=== PATIENT | female | born 1940 | race Caucasian/White ===

== ENCOUNTER 2024-01-03 09:15 | Emergency (ER) | payer MEDICARE, OTHER, SELFPAY ==
[2024-01-03] VITALS (47 sets, daily range): BP systolic 124–219; BP diastolic 38–98; PULSE 42–104; RESP 8–21; O2SAT 83–99
--- NOTE | 2024-01-03 09:15 | RT.EKG_ITS ---
APPROVED REPORT Exam: Resting ECG Reason for Exam: palpitations Patient Location: E HR:75 bpm ECG Measurements Heart Rate 75 AXIS NE 169 P 62 QRSd 86 QRS 34 QT 394 T 59 QTc 439 Conclusion Sinus rhythm 75 Normal axis no stemi + PVC
[2024-01-03 09:37] LABS: Abs Immature Grans 0.05 10^3/uL (0.0-0.06); Absolute Basophil Count 0.07 10^3/uL (0.0-0.2); Absolute Eosinophil Count 0.29 10^3/uL (0.0-0.7); Absolute Lymphocyte Count 0.89 10^3/uL (1.2-3.4); Absolute Monocyte Count 0.85 10^3/uL (0.1-0.8); Absolute Neutrophil Count 8.35 10^3/uL (1.2-6.7); Basophils % 0.7 %; Eosinophils % 2.8 %; HCT 39.6 % (36.0-46.0); HGB 12.7 g/dL (11.2-15.7); Immature Grans % 0.5 %; Lymphocytes % 8.5 %; MCH 32.4 pg (27.0-33.0); MCHC 32.1 % (32.0-36.0); MCV 101 fL (80-95); MPV 10.6 fL (8.0-11.0); Monocytes % 8.1 %; Neutrophils % 79.4 %; Platelet Count 211 10^3/uL (130-400); RBC 3.92 10^6/uL (3.93-5.22); RDW-SD 51.6 fL
[2024-01-03] MEDS: nitroGLYcerin 0.4 MG TAB (09:40)
[2024-01-03] MEDS: Aspirin 325 MG TAB PO (09:41)
--- NOTE | 2024-01-03 09:49 | W.ED.GENAD ---
Discharge Plan Disposition Patient Disposition: Home Discharge Details Clinical Impression: Heart palpitations, Symptomatic PVCs Primary Care Provider: [facility] Provider: Lizandro Mclaughlin Home Meds and New Rx's Prescriptions: No Action famotidine 40 mg tablet 40 mg PO BID lisinopril 10 mg tablet 10 mg PO QHS lorazepam [Ativan] 0.5 mg tablet 0.5 mg PO QHS Rx Instructions: Can take an extra 1/2 tab PRN daily for anxiety hydrocodone-acetaminophen 10-325 mg tablet 1 tab PO Q6H Rx Instructions: Can take 1-2 tabs QID dicyclomine 10 mg capsule 10 mg PO QID PRN Patient Comments: TAKE ONE TO TWO CAPSULES BY MOUTH FOUR TIMES A DAY NEEDED FOR ABDOMINAL CRAMPING Rx Instructions: Take 1-2 cap PO QID PRN for abdominal pain nitroglycerin 400 mcg/spray spray,non-aerosol See Rx Instructions .ROUTE .COMPLEX Rx Instructions: PLACE ONE TABLET ON OR UNDER THE TONGUE EVERY 5 MINUTES FOR UP TO 3 DOSES NEEDED FOR CHEST PAIN. IF CHEST PAIN STILL PERSISTS CONTACT 911; PLACE ONE TABLET ON OR UNDER THE TONGUE EVERY 5 MINUTES FOR UP TO 3 DOSES NEEDED FOR CHEST PAIN. IF CHEST PAIN STILL PERSISTS CONTACT 911 diltiazem HCl [Cardizem] 30 mg tablet 30 mg PO DAILY Discharge Instructions Instructions: Arrhythmias (DC) Additional Instructions: Continue to monitor your blood pressure as it has been elevated in the emergency department today You are having intermittent PVCs but if you feel palpitations, take your dose of diltiazem. And please follow-up with your construction management assistant when you get home. Discharge Data Discharge Date/Time-TO BE ENTERED AT DEPARTURE: 01/03/24 13:07 HPI General Date/Time Provider Initiated Documentation: 01/03/24 09:17. Limitations to Documentation: no limitations. Information obtained by: patient. HPI Narrative: 83-year-old female with past medical history of cardiac dysrhythmia, hypertension, anxiety, chronic pain and osteoarthritis presents for evaluation of chest pressure and rapid heart rate. She reports that this woke her from sleep at 2 AM. She denies chest pain, states that she just felt a pressure. She took an oral dose of diltiazem. She states that she did not use her nitroglycerin spray as she was not having pain. She reports that the symptoms persisted but have improved significantly. She does report some mild residual pressure. She states that she developed a headache later in the morning and that she got Tylenol by EMS and thinks that that is helping. She takes her blood pressure medication at nighttime and did not take anything this morning. She reports that she is generally very active as she is a and has to take care of all of the things around her house by herself. She states that she felt fine all day yesterday and had no symptoms when she went to bed last night. Related Data Home Medications ?Medication ?Instructions ?Recorded ?Confirmed dicyclomine 10 mg capsule 10 mg PO QID PRN 01/03/24 01/03/24 diltiazem HCl 30 mg tablet 30 mg PO DAILY 01/03/24 01/03/24 (Cardizem) famotidine 40 mg tablet 40 mg PO BID 01/03/24 01/03/24 hydrocodone 10 mg-acetaminophen 1 tab PO Q6H 01/03/24 01/03/24 325 mg tablet lisinopril 10 mg tablet 10 mg PO QHS 01/03/24 01/03/24 lorazepam 0.5 mg tablet (Ativan) 0.5 mg PO QHS 01/03/24 01/03/24 nitroglycerin 400 mcg/spray See Rx Instructions .Route .COMPLEX 01/03/24 01/03/24 translingual Allergies Allergy/AdvReac Type Severity Reaction Status Date / Time duloxetine (From Cymbalta) Allergy Unknown Unknown Verified 01/03/24 11:18 gabapentin Allergy Unknown Unknown Verified 01/03/24 11:18 hydroxychloroquine (From Allergy Unknown Unknown Verified 01/03/24 11:18 Plaquenil) milnacipran (From Savella) Allergy Unknown Unknown Verified 01/03/24 11:18 nystatin Allergy Unknown Unknown Verified 01/03/24 11:18 Sulfa (Sulfonamide Allergy Unknown Unknown Verified 01/03/24 09:27 Antibiotics) trimethoprim Allergy Unknown Unknown Verified 01/03/24 11:18 beta blockers Allergy Unknown Unknown Uncoded 01/03/24 11:18 General Stated Complaint: Headache NBA: 3 Exam Narrative Exam Narrative: Review of Systems: All systems reviewed & are unremarkable except as noted in HPI and below Well-developed, no acute distress NCAT PERRL, normal conjunctiva RRR no murmur Mastectomy Unlabored respiratory effort, clear bilaterally Nondistended abdomen soft nontender Extremities w/o edema No rashes or lesions. no focal neurologic deficits Course Vital Signs Vital signs: Vital Signs Respiratory Rate 11 L 01/03/24 09:17 Pulse Oximetry 98 01/03/24 09:17 Pulse 63 01/03/24 09:46 Pulse 71 01/03/24 09:46 Respiratory Rate 12 01/03/24 09:46 Respiratory Effort Normal 01/03/24 09:21 Blood Pressure 185/74 H 01/03/24 09:46 Blood Pressure Mean 101 01/03/24 09:46 Blood Pressure Position Sitting 01/03/24 09:22 Pulse Oximetry 95 01/03/24 09:40 Oxygen Delivery Method Room Air 01/03/24 09:22 Oxygen Flow Rate 0 01/03/24 09:22 Pain Level 3 01/03/24 09:41 Lab/Test Results Lab/Test Results: Laboratory Tests Range/Units 01/03/24 09:24 WBC (4.4-10.8) 10^3/uL 10.50 RBC (3.93-5.22) 10^6/uL 3.92 L Hgb (11.2-15.7) g/dL 12.7 Hct (36.0-46.0) % 39.6 MCV (80-95) fL 101 H MCH (27.0-33.0) pg 32.4 MCHC (32.0-36.0) % 32.1 RDW (11.7-14.6) % 14.0 Plt Count (130-400) 10^3/uL 211 MPV (8.0-11.0) fL 10.6 Immature Gran % % 0.5 Neutrophils % % 79.4 Lymphocytes % % 8.5 Monocytes % % 8.1 Eosinophils % % 2.8 Basophils % % 0.7 Nucleated RBC % (0.0-0.3) % 0.0 Absolute Neutrophils (1.2-6.7) 10^3/uL 8.35 H Absolute Lymphocytes (1.2-3.4) 10^3/uL 0.89 L Absolute Monocytes (0.1-0.8) 10^3/uL 0.85 H Absolute Eosinophils (0.0-0.7) 10^3/uL 0.29 Absolute Basophils (0.0-0.2) 10^3/uL 0.07 Medical Decision Making Emergent evaluation of chest pressure, palpitations and headache. This is in the setting of elevated blood pressure. Initial differential includes hypertensive emergency, dysrhythmia, CAD or ACS. EKG reviewed and independently interpreted. Sinus 75 PVC no STEMI. Will give aspirin. Nitro for chest pressure. Will work on blood pressure control and check lab work including serial troponins. 1000 Patient chest pressure resolved after 1 dose of nitroglycerin, but headache is worsening. Blood pressure still elevated over 200. Will treat this with IV medication and see if symptoms improved 1135 Called to bedside for increased palpitations after coming back from the bathroom. Patient is noted to be more tachycardic heart rate around 100 with multiple PVCs. I was able to look through her medications and she does have 30 mg diltiazem with her and that is what she took at 2 AM. I will give her an IV dose of this and continue to monitor. Serial troponins have been negative. Patient observed in the emergency department and no additional symptoms recurred. Her blood work is unremarkable. I think that she is just having symptomatic PVCs and I would recommend taking her medication as prescribed by her construction management assistant. ER return precautions were advised and the patient is stable for discharge. Recommend close follow-up with construction management assistant if she has persistent palpitation symptoms Quality:SDOH Health Related Social Needs: No Data to Display PFSH All Active Problems (Updated 01/03/24 @ 12:33 by Lizandro Mclaughlin MD) Symptomatic PVCs (Acute) Heart palpitations (Acute) Social History Smoking/Tobacco Use Status: Never Smoking risk assessment performed?: Yes Alcohol Intake: current Alcohol Intake frequency: holidays/special occasions only Alcohol type: wine Drug use: Never Substance use type: does not use Housing: house
[2024-01-03 10:07] LABS: ALT 29 U/L (14-59); AST 28 U/L (15-37); Albumin 3.4 g/dL (3.4-5.0); Alkaline Phosphatase 188 U/L (46-116); Anion Gap 6.3 mmol/L (3-11); BUN 22 mg/dL (7-18); Bilirubin, Total 0.38 mg/dL (0.2-1.0); CO2 29.7 mmol/L (21.0-32.0); CREATININE 0.9 mg/dL (0.55-1.02); Calcium 9.3 mg/dL (8.5-10.1); Chloride 108 mmol/L (98-107); Estimated GFR 63.83 (mL/min/1.73m2); Glucose 104 mg/dL (74-106); Magnesium 2.3 mg/dL (1.8-2.4); Potassium 4.4 mmol/L (3.5-5.1); Sodium 144 mmol/L (136-145); TSH 2.11 uIU/mL (0.36-3.74); Total Protein 7.3 g/dL (6.4-8.2); Troponin I 14 ng/L (<or=51)
--- NOTE | 2024-01-03 10:11 | DI.RAD_ITS ---
Exam(s) XR PORTABLE CHEST AP EXAM: XR PORTABLE CHEST AP CLINICAL HISTORY: chest pain. TECHNIQUE: 2D digital imaging was performed. COMPARISON: No exams were available for comparison FINDINGS: Single AP portable view. Heart size is minimally prominent. The mediastinum is not widened. Clips are noted in the right axi lla. Lungs are clear. No infiltrates nor obvious pleural effusions. IMPRESSION: No acute pulmonary findings on this single AP portable view of the chest. DATA REPOSITORY: RADIATION DOSE DELIVERED:
[2024-01-03] MEDS: hydrALAZINE 20 MG/ML VIAL 10 MG IVP (10:28)
[2024-01-03 10:29] LABS: NT-proBNP 976 pg/mL (<300)
[2024-01-03 11:06] LABS: Troponin I 13 ng/L (<or=51)
--- NOTE | 2024-01-03 11:15 | RT.EKG_ITS ---
APPROVED REPORT Exam: Resting ECG Reason for Exam: palpatations Patient Location: E HR:99 bpm ECG Measurements Heart Rate 99 AXIS ME 183 P 65 QRSd 85 QRS 15 QT 374 T 66 QTc 482 Conclusion Sinus rhythm' 99 + PVC no stemi
[2024-01-03] MEDS: dilTIAZem 25 MG/5 ML VIAL 10 MG IVP (11:39)
== END 2024-01-03 13:07 | disposition home or self-care (01) ==
PROVIDERS: Emergency Provider Emergency Medicine
DX: R07.89 Other chest pain (principal); R00.2 Palpitations; I49.3 Ventricular premature depolarization; I10 Essential (primary) hypertension; F41.9 Anxiety disorder, unspecified
CPT/HCPCS: 36415; 80053; 93005; 96374; 96375; 99285; 71045; 83735; 83880; 84443; 84484; 85025; 93010; 99284; J0360